=== PATIENT | male | born 1940 | race Caucasian/White ===

== ENCOUNTER 2020-12-18 19:44 | Emergency (ER) | payer MEDICARE, BC ==
[~2020-12-18] VITALS: Ht 170.2 cm; Wt 63.0 kg
[~2020-12-18 19:44] MED LIST: DOCU-148 PO; ENZA40CA PO; POLY119P2 PO; SENN8.6T19 PO; TROS20TA4 PO
[2020-12-18] MEDS ORDERED: ketorolac tromethamine 15mg/ml inj. IV ONE (23:00)
[2020-12-18 23:20] LABS: BASOPHILS # (AUTO) 0.1 X10'3 (0-0.2); BASOPHILS % (AUTO) 1.5 % (0-1); EOSINOPHILS % (AUTO) 0.1 % (0-6); HEMOGLOBIN 10.6 g/dl (14.0-17.9); LYMPHOCYTES # (AUTO) 0.9 X10'3 (1.1-4.8); LYMPHOCYTES % (AUTO) 8.8 % (21-51); MEAN CORPUSCULAR HEMOGLOBIN 31.1 PG (27.0-31.0); MEAN CORPUSCULAR HGB CONC 34.3 g/dL (33.0-36.5); MEAN CORPUSCULAR VOLUME 90.6 FL (78-98); MONOCYTES # (AUTO) 0.7 X10'3 (0-0.9); MONOCYTES % (AUTO) 7.2 % (2-12); NEUTROPHILS % (AUTO) 82.4 % (42-75); PLATELET COUNT 329 X10'3 (140-440); RED BLOOD COUNT 3.42 X10'6 (4.70-6.10); RED CELL DISTRIBUTION WIDTH 16.8 % (11.5-14.5); WHITE BLOOD COUNT 9.7 X10'3 (4.5-11.0)
[2020-12-18 23:39] LABS: ALANINE AMINOTRANSFERASE 14 U/L (12-78); ALBUMIN 2.5 G/DL (3.4-5.0); ALBUMIN/GLOBULIN RATIO 0.5 (1.1-1.5); ALKALINE PHOSPHATASE 165 IU/L (46-116); ANION GAP 12 (8-16); ASPARTATE AMINO TRANSFERASE 58 U/L (10-37); BILIRUBIN,TOTAL 0.5 MG/DL (0.1-1.0); BLOOD UREA NITROGEN 18 MG/DL (7-18); BUN/CREATININE RATIO 16.1 (5.4-32.0); CALCIUM 8.7 MG/DL (8.5-10.1); CHLORIDE 101 MMOL/L (99-107); CREATININE 1.12 MG/DL (0.60-1.10); GLUCOSE 109 MG/DL (70-104); LIPASE < 50 U/L (73-393); MAGNESIUM 2.5 MG/DL (1.5-2.4); SODIUM 140 MMOL/L (135-145); TOTAL CARBON DIOXIDE 27.5 MMOL/L (24-32); TOTAL PROTEIN 7.4 G/DL (6.4-8.2); eGFR 63 ML/MIN
[2020-12-19 02:44] LABS: ANISOCYTOSIS 1+; PLATELET ESTIMATE NORMAL; TOTAL CELLS COUNTED 100
[2020-12-19 02:45] LABS: STOMATOCYTES 1+
[2020-12-19] MEDS ORDERED: normal saline 1000ml 1,000 ML IV ONE (03:15)
[2020-12-19] MEDS ORDERED: CefTRIAXone/D5W-Rocephin 1gm 50 ML IV ONE (04:40)
--- NOTE | 2020-12-19 04:56 | NUR ---
Patient is incontinent r/t prostate sx in October. Pt fitted with condom catheter and collection bag to collect urine sample.
[2020-12-19 05:28] VITALS: BP 132/85
[2020-12-19 07:04] LABS: CLARITY,URINE CLOUDY (Clear); COLOR,URINE YELLOW (Yellow); GLUCOSE, URINE NEGATIVE (Neg); KETONES,URINE 15 mg/dl (Neg); LEUKOCYTE ESTERASE ,URINE MODERATE (Neg); NITRITES, URINE NEGATIVE (Neg); OCCULT BLOOD,URINE MODERATE (Neg); PROTEIN,URINE 300 mg/dl (Neg); UA COLLECTION TYPE CONDOM CATH; UROBILINOGEN,URINE 0.2 E.U/dL (0.2-1.0)
[2020-12-19 07:09] LABS: BACTERIA,URINE 2+ /HPF (Neg); MUCUS STRANDS NONE SEEN /LPF (Neg); SQUAMOUS EPITHELIAL CELL,UR FEW /LPF (FEW); WBC CLUMPS,URINE MANY /HPF (NEGATIVE); WBC,URINE TNTC /HPF (0-4)
[2020-12-19] MEDS ORDERED: CEPH-585 PO (07:17)
== END 2020-12-19 09:18 | disposition home or self-care (01) ==
LOC: ER 19:44
DX: R41.0 Disorientation, unspecified (principal); R50.9 Fever, unspecified; R10.30 Lower abdominal pain, unspecified; R53.1 Weakness; C80.1 Malignant (primary) neoplasm, unspecified; N39.0 Urinary tract infection, site not specified; I25.10 Atherosclerotic heart disease of native coronary artery without angina pectoris; Z85.50 Personal history of malignant neoplasm of unspecified urinary tract organ; Z79.2 Long term (current) use of antibiotics; Z79.899 Other long term (current) drug therapy; Z98.890 Other specified postprocedural states
CPT/HCPCS: 36415; 70450; 71045; 74176; 76700; 80053; 81001; 83690; 83735; 84145; 85007; 85025; 87040; 87077; 87088; 87186; 93005; 96361; 96365; 96375; 99285; J0696; J1885; J7030